=== PATIENT | male | born 1990 | race African-American/Black ===

== ENCOUNTER 2021-06-03 18:27 | Emergency (ER) | payer SELFPAY ==
[2021-06-03] MEDS ORDERED: Acetaminophen 500 MG TAB ONE (19:28)
[2021-06-03] MEDS ORDERED: Ibuprofen 200 MG TAB ONE (19:28)
== END 2021-06-03 19:31 | disposition home or self-care (01) ==
LOC: CSHERS 18:27
DX: J06.9 Acute upper respiratory infection, unspecified (principal); Z20.822 Contact with and (suspected) exposure to COVID-19; Z87.891 Personal history of nicotine dependence
CPT/HCPCS: 99283

== ENCOUNTER 2022-04-28 08:34 | Emergency (ER) | payer SELFPAY | END 2022-04-28 11:17 | disposition left against medical advice (07) | LOC: CSHERS 08:34 | DX: Z53.21 Procedure and treatment not carried out due to patient leaving prior to being seen by health care provider (principal) ==

== ENCOUNTER 2024-05-29 11:18 | Emergency (ER) | payer BC, SELFPAY | END 2024-05-29 12:01 | disposition home or self-care (01) | LOC: CSHERS 11:18 | DX: H61.011 Acute perichondritis of right external ear (principal); Z87.891 Personal history of nicotine dependence | CPT/HCPCS: 99282 ==

== ENCOUNTER 2025-05-23 07:57 | Emergency (ER) | payer BC | END 2025-05-23 08:50 | disposition home or self-care (01) | LOC: CSHERS 07:57 | DX: A59.00 Urogenital trichomoniasis, unspecified (principal); Z87.891 Personal history of nicotine dependence | CPT/HCPCS: 99283 ==